=== PATIENT | male | born 1980 | race African-American/Black ===

== ENCOUNTER 2016-09-25 11:24 | Emergency (ER) | payer OTHER ==
[~2016-09-25] VITALS: Ht 172.7 cm; Wt 102.5 kg
[2016-09-25 11:53] VITALS: Ht 172.7 cm; Wt 102.5 kg
[2016-09-25] MEDS ORDERED: IBUP-1542 PO (14:30)
[2016-09-25] MEDS ORDERED: HYDR-906 PO (14:30)
[2016-09-25] MEDS ORDERED: HYDROCODONE/APAP (5/325) TAB PO ONE (14:30)
[2016-09-25] MEDS ORDERED: IBUPROFEN 600 MG TAB PO ONE (14:30)
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
== END 2016-09-25 14:46 | disposition home or self-care (01) ==
LOC: FTE 11:24
DX: S23.9XXA Sprain of unspecified parts of thorax, initial encounter (principal); V49.40XA Driver injured in collision with unspecified motor vehicles in traffic accident, initial encounter
CPT/HCPCS: Z7610 ×2; 99283

== ENCOUNTER 2018-01-19 17:35 | Emergency (ER) | END 2018-01-19 21:34 | disposition home or self-care (01) ==